=== PATIENT | female | born 1940 | race Caucasian/White ===

== ENCOUNTER 2023-12-31 10:39 | Outpatient (OUT) | payer MEDICARE, OTHER, SELFPAY ==
--- NOTE | 2023-12-31 10:52 | ECG_ITS ---
[facility] Test Date: 2023-12-31 Pat Name: DANA ALVAREZ Department: Room: - Gender: Female Sales Order Processor: : [id number] Requested By: MIKO ARTIS Order Number: [id number] Reading MD: GRICELDA BURCIAGA Measurements Intervals [place] Rate: 64 P: 61 ME: 180 QRS: -44 QRSD: 110 T: 73 QT: 421 QTc: 437 Interpretive Statements SINUS RHYTHM MARKED LEFT AXIS DEVIATION [QRS AXIS < -30] ANTEROSEPTAL MYOCARDIAL INFARCTION [40+ ms Q WAVE IN V1-V4], OF INDETERMINATE AGE No previous ECG available for comparison Electronically Signed On 12-31-2023 18:08:41 EDT by GRICELDA BURICAGA
[2023-12-31 12:07] LABS: Anion Gap 10.9; BUN Creatinine Ratio 9.8; Calcium 8.8 mg/dL (8.5-10.1); Carbon Dioxide 28.8 mmol/L (21.0-32.0); Chloride 103 mmol/L (98-107); Estimated GFR (African America >60 (>=60); Estimated GFR (Non-African Ame 52 (>=60); Glucose 116 mg/dL (74-106); Potassium 3.7 mmol/L (3.5-5.1); Sodium 139 mmol/L (136-145)
[2023-12-31 12:15] LABS: Basophils Absolute Auto 0.1 10^3/uL (0.0-0.1); Basophils Percent Auto 0.9 % (0.2-2.0); Eosinophils Absolute Auto 0.3 10^3/uL (0.0-0.7); Hematocrit 41.8 % (36.0-48.0); Immature Granulocytes Abs Auto 0.01 10^3/uL (0.00-0.03); Immature Granulocytes Pct Auto 0.2 % (0.0-0.5); Lymphocytes Absolute Auto 1.8 10^3/uL (1.2-3.8); Mean Corpuscular HGB Conc 31.1 g/dL (29.9-35.2); Mean Corpuscular Hemoglobin 25.2 pg (26.7-34.0); Mean Platelet Volume 9.8 fL (9.5-13.5); Monocytes Absolute Auto 0.5 10^3/uL (0.3-0.8); Monocytes Percent Auto 8.3 % (1.7-12.0); Neutrophils Absolute Auto 3.8 10^3/uL (1.4-6.5); Neutrophils Percent Auto 58.6 % (43.0-75.0); Platelet Count 257 10^3/uL (150-450); Red Blood Count 5.16 10^6/uL (4.20-5.40); Red Cell Distribution Width 15.7 % (11.0-15.0); White Blood Count 6.5 10^3/uL (4.0-11.0)
[2023-12-31 12:38] LABS: INR 0.96; Partial Thromboplastin Time 28.5 sec (22.3-36.2); Prothrombin Time 10.2 sec (9.0-11.6)
== END 2023-12-31 10:40 | disposition home or self-care (01) ==
LOC: PST 10:47
PROVIDERS: PCP Family Medicine; Visit Provider Otolaryngology
DX: Z01.810 Encounter for preprocedural cardiovascular examination (principal); Z01.812 Encounter for preprocedural laboratory examination; T16.2XXA Foreign body in left ear, initial encounter
CPT/HCPCS: 80048; 85025; 85610; 85730; 93005

== ENCOUNTER 2024-01-13 13:01 | Outpatient (OUT) | payer MEDICARE, OTHER, SELFPAY | END 2024-01-13 13:02 | disposition home or self-care (01) | LOC: PST 13:03 | PROVIDERS: PCP Family Medicine; Visit Provider Otolaryngology | DX: Z01.818 Encounter for other preprocedural examination (principal); T16.2XXA Foreign body in left ear, initial encounter ==

== ENCOUNTER 2024-01-18 12:00 | Day surgery (SDC) | payer MEDICARE, OTHER, SELFPAY ==
[2023-12-31 11:28] VITALS: BP 161/89; PULSE 69; TEMP 36.4; O2SAT 97; BMI 24.5
--- NOTE | 2024-01-18 | OP_ITS ---
OPERATION DATE: 01/18/2024 PRIMARY CARE PHYSICIAN: Olivia Thomason M.D. SURGEON: Maria Carlos M.D. PREOPERATIVE DIAGNOSIS: Left cerumen impaction. 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 PROCEDURE: Removal of left ear foreign body. ANESTHESIA: MAC. COMPLICATIONS: None. FINDINGS: Left external auditory canal completely filled with squamous debris. INDICATIONS: This 83-year-old woman presented with presumed cerumen impaction, which she did not tolerate having manipulated in the office. Therefore, she was brought to the OR for sedation in order to clean her ear. PROCEDURE: Patient identified in the holding area and taken back to the OR, where she was placed in a supine position. After induction of MAC anesthesia, the left ear was approached with the otomicroscope and a Lc forcep was used to remove a large plug of squamous debris from the lateral external auditory canal. The remainder of the auditory canal continued to be completely filled with soft squamous debris, and this was removed using suction. Once the ear was completely debrided, Ciprodex drops were infused in the ear, and the patient was awakened and taken to the recovery room in good condition. BRIGHT
[2024-01-18 12:20] VITALS: BP 145/86; PULSE 76; TEMP 36.2; O2SAT 99; BMI 24.5
[2024-01-18] MEDS: LACTATED RINGER'S SOLUTION 1,000 ML 50 ML IV (12:30)
[2024-01-18] MEDS: CIPROFLOXACIN HCL/DEXAMETH 0.3%/0.1% OTIC SUSP 150 DROP/7.5 ML BOTTLE OT (13:27)
[2024-01-18 13:32] VITALS: BP 126/73; PULSE 68; TEMP 36.1; O2SAT 92
[2024-01-18 13:47] VITALS: BP 113/65; PULSE 68; O2SAT 96
[2024-01-18 14:00] VITALS: BP 131/68; PULSE 64; O2SAT 97
== END 2024-01-18 14:20 | disposition home or self-care (01) ==
PROVIDERS: PCP Family Medicine; Visit Provider Otolaryngology
PROC: (CPT 69399; principal; 2024-01-18 13:00)
DX: H60.42 Cholesteatoma of left external ear (principal); E78.5 Hyperlipidemia, unspecified; I10 Essential (primary) hypertension; I34.1 Nonrheumatic mitral (valve) prolapse; M19.90 Unspecified osteoarthritis, unspecified site
CPT/HCPCS: 69399; 36415; J2704